=== PATIENT | male | born 1995 | race Caucasian/White ===

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

== ENCOUNTER 2017-07-08 22:24 | Emergency (ER) | payer OTHER ==
[2017-07-08 22:38] VITALS: RESP 16; TEMP 98.1
[2017-07-09] MEDS ORDERED: LORazepam 1 MG TAB ONE (00:05)
[2017-07-09] MEDS ORDERED: LORazepam 1 MG TAB PO ONE (00:06)
--- NOTE | 2017-07-09 00:09 | EDPHY ---
H & P Time Seen by Provider: 07/08/17 23:26 HPI/ROS: CHIEF COMPLAINT: Anxiety HISTORY OF PRESENT ILLNESS: 21-year-old male presents to the emergency department feeling extremely anxious. The patient has a history of ongoing anxiety and takes numerous medications. He has been taking this as prescribed and does not feel that they are helping. He admits to smoking marijuana daily and has for several years. Today the patient apparently got into an argument with his mother and made a suicidal statement. She called their psychiatrist who told the patient that she would call the police if he did not come to the hospital for evaluation. The patient states that he feels extremely anxious and is not able to function. He has however been eating and drinking. He lives at home with his parents. He denies any other substance abuse. He denies homicidal or suicidal ideation. No reported trauma. REVIEW OF SYSTEMS: Constitutional: No fever, no chills. Eyes: No double or blurry vision. ENT: No sore throat. Respiratory: No cough, no shortness of breath. Cardiac: No chest pain. Gastrointestinal: No abdominal pain, vomiting or diarrhea. Genitourinary: No dysuria. Musculoskeletal: No neck or back pain. Skin: No rashes. Neurological: No headache. Past Medical/Surgical History: Anxiety, depression, bipolar, marijuana use, ADD Social History: Single Smoking Status: Light smoker Physical Exam: General Appearance: Alert, no distress. Anxious. Eyes: Pupils equal and round. Extraocular motions are all intact. ENT: Mouth: Mucous membranes moist. Respiratory: No wheezing, rhonchi, or rales, lungs are clear to auscultation. Cardiovascular: Regular rate and rhythm. Gastrointestinal: Abdomen is soft and nontender, no masses, no rebound or guarding, bowel sounds normal. Neurological: Alert and oriented x 3, cranial nerves II through XII grossly intact Skin: Warm and dry, no rashes. Musculoskeletal: Nontender to palpate along the cervical, thoracic or lumbar spine. Neck is supple. Extremities: Full range of motion and no peripheral edema. Psychiatric: Patient is oriented X 3, there is no agitation. Constitutional: Initial Vital Signs Temperature (C) 36.7 C 07/08/17 22:37 Heart Rate 102 H 07/08/17 22:37 Respiratory Rate 16 07/08/17 22:37 Blood Pressure 130/66 H 07/08/17 22:37 O2 Sat (%) 97 07/08/17 22:37 O2 Delivery Mode Room Air Allergies/Adverse Reactions: No Known Allergies Allergy (Verified 07/08/17 22:39) Home Medications: Medication Instructions Recorded Adderall 10 MG (*) 07/08/17 Clonidine HCl 07/08/17 Seroquel 07/08/17 Zyprexa 5 mg 07/08/17 Medical Decision Making ED Course/Re-evaluation: 21-year-old male with a history of anxiety presents to the emergency department feeling extremely anxious. The patient is not suicidal or homicidal. Denies auditory or visual hallucinations. The patient declined speaking with mental health. I did also speak with his father who was in the family room and he also agreed that the patient did not need mental health evaluation. They have a psychiatrist that was they will follow up this week. He also has 2 therapist that he sees. He does not believe that the patient is suicidal or homicidal. The patient again reassures me that he is not suicidal homicidal and wants to go home with his dad. He has been taking his medications as prescribed. He was given 2 mg of Ativan orally since he refused IV or IM medication. I encouraged him to return to the emergency department if he felt suicidal homicidal or any other concerns. Differential Diagnosis: Depression including functional and major depression, situational depression, medication side effect, drugs and alcohol abuse. - Data Points Medications Given: Discontinued Medications Lorazepam (Ativan) 2 mg PO EDNOW ONE Stop: 07/09/17 00:07 Last Admin: 07/09/17 00:07 Dose: 2 mg Departure - Departure Disposition: Home, Routine, Self-Care Clinical Impression: Anxiety Condition: Good Instructions: Anxiety (ED) Additional Instructions: Follow up with your therapist and psychiatrist this week. Continue medications as prescribed. Your given 2 mg of Ativan orally in the emergency department. He declined mental health evaluation. Please return to the emergency department if you feel suicidal, homicidal, extreme anxiety that is not controlled with medication, or if you feel worse in any way. Referrals: [facility],. [Clinic] - As per Instructions
[2017-07-09 00:16] VITALS: BP 113/62; PULSE 91; O2SAT 96
== END 2017-07-09 00:15 | disposition home or self-care (01) ==
DX: F41.9 Anxiety disorder, unspecified (principal); F17.200 Nicotine dependence, unspecified, uncomplicated